=== PATIENT | female | born 1960 | race Caucasian/White ===

== ENCOUNTER 2024-12-10 14:49 | Inpatient (IN) | payer BC ==
[~2024-12-10] VITALS: Ht 162.6 cm; Wt 72.5 kg
[2024-12-10 15:27] LABS: BASOPHILS % (AUTO) 0.4 % (0-1); HEMOGLOBIN 14.9 g/dl (12.0-16.0); RED CELL DISTRIBUTION WIDTH 13.9 % (11.5-14.5)
[2024-12-10 15:29] LABS: EOSINOPHILS % (AUTO) 0.3 % (0-6); LYMPHOCYTES # (AUTO) 1.2 X10'3 (1.1-4.8); LYMPHOCYTES % (AUTO) 14.3 % (21-51); MEAN CORPUSCULAR HEMOGLOBIN 31.1 PG (27.0-31.0); MEAN CORPUSCULAR HGB CONC 33.1 g/dL (33.0-36.5); MEAN CORPUSCULAR VOLUME 94.1 FL (78-98); MEAN PLATELET VOLUME 10.8 FL (7.4-10.4); MONOCYTES # (AUTO) 0.7 X10'3 (0-0.9); MONOCYTES % (AUTO) 9.1 % (2-12); NEUTROPHILS # (AUTO) 6.3 X10'3 (1.8-7.7); NEUTROPHILS % (AUTO) 75.9 % (42-75); PLATELET COUNT 217 X10'3 (140-440); RED BLOOD COUNT 4.78 X10'6 (4.20-5.60); WHITE BLOOD COUNT 8.3 X10'3 (4.5-11.0)
[2024-12-10 15:50] LABS: ALANINE AMINOTRANSFERASE 125 U/L (12-78); ALBUMIN 3.5 G/DL (3.4-5.0); ALKALINE PHOSPHATASE 71 IU/L (46-116); ANION GAP 10 (8-16); ASPARTATE AMINO TRANSFERASE 69 U/L (10-37); BILIRUBIN,TOTAL 1.1 MG/DL (0.1-1.0); BLOOD UREA NITROGEN 23 MG/DL (7-18); CALCIUM 8.8 MG/DL (8.5-10.1); CHLORIDE 103 MMOL/L (99-107); CREATININE 1.28 MG/DL (0.40-0.90); GLUCOSE 136 MG/DL (70-104); POTASSIUM 4.3 MMOL/L (3.5-5.1); SODIUM 137 MMOL/L (135-145); TOTAL CARBON DIOXIDE 24.4 MMOL/L (24-32); TOTAL PROTEIN 6.9 G/DL (6.4-8.2); eCRCL 39 ML/MIN; eGFR 42 ML/MIN
[2024-12-10 15:58] LABS: PRO BRAIN NATRIURETIC PEPTIDE 6219 PG/ML (0-125)
[2024-12-10 16:05] LABS: PLATELET ESTIMATE NORMAL
[2024-12-10 16:06] LABS: LARGE PLATELETS FEW
[2024-12-10] MEDS ORDERED: bisacodyl 10mg suppository rectal RC PRN (17:35)
[2024-12-10] MEDS ORDERED: mag hydrox/Alum hydrox/simeth 30ml oral suspension PO PRN (17:35)
[2024-12-10] MEDS ORDERED: magnesium hydroxide 30ml (MOM) UD suspension PO PRN (17:35)
[2024-12-10] MEDS ORDERED: magnesium sulf-water 4G/100mL 100 ML IV PRN (17:35)
[2024-12-10] MEDS ORDERED: potassium Cl 40MEQ/1/2NS 520ml 520 ML IV PRN (17:35)
[2024-12-10] MEDS ORDERED: acetaminophen 325mg tablet PO PRN (17:35)
[2024-12-10] MEDS ORDERED: potassium Cl 20 mEq SR tablet PO PRN (17:35)
[2024-12-10] MEDS: furosemide 10 MG/1 ML 10ml inj IV SCH (17:35)
[2024-12-10] MEDS ORDERED: morphine 2 MG/ML inj. syringe IV PRN (17:35)
[2024-12-10] MEDS ORDERED: magnesium sulf-water 2g/50mL 50 ML IV PRN (17:35)
[2024-12-10] MEDS ORDERED: HYDROmorphone inj. 0.5 MG/0.5 ML DISP.SYRIN IV PRN (17:35)
[2024-12-10] MEDS ORDERED: magnesium Cl slow-release 64mg tablet PO PRN (17:35)
[2024-12-10] MEDS ORDERED: ondansetron/PF 4mg/2ml inj IV PRN (17:35)
[2024-12-10 18:17] LABS: APTT 27 SECONDS (22-32); INR 1.1 INR; PROTHROMBIN TIME 11.9 SECONDS (9.0-12.0)
[2024-12-10] MEDS: furosemide 10 MG/1 ML 10ml inj IV ONE (18:54)
[2024-12-10 19:03] LABS: BILIRUBIN,URINE NEGATIVE (Neg); CLARITY,URINE CLEAR (Clear); COLOR,URINE YELLOW (Yellow); GLUCOSE, URINE NEGATIVE (Neg); KETONES,URINE NEGATIVE (Neg); LEUKOCYTE ESTERASE ,URINE NEGATIVE (Neg); NITRITES, URINE NEGATIVE (Neg); OCCULT BLOOD,URINE NEGATIVE (Neg); PROTEIN,URINE NEGATIVE (Neg); UROBILINOGEN,URINE 0.2 E.U/dL (0.2-1.0)
[2024-12-10 19:18] LABS: UA COLLECTION TYPE NON-SPECIFIED
[2024-12-10] MEDS: DOBUTamine-DoBUTrex 500mg/D5W 250 ML IV SCH (19:33)
[2024-12-10] MEDS: docusate sod 100mg capsule PO SCH (19:51)
[2024-12-10] MEDS: heparin, porcine 5000 units/ml vial SQ SCH (19:52)
[2024-12-10] MEDS: K and/or MAG REPLACEMENT MC SCH (20:00)
[2024-12-10] MEDS ORDERED: FERR-116 PO (20:28)
[2024-12-10] MEDS ORDERED: ZOLP5TAB8 PO (20:28)
[2024-12-10] MEDS ORDERED: THYR60TA2 PO (20:28)
[2024-12-10] MEDS ORDERED: MAGN400C PO (20:28)
[2024-12-10] MEDS ORDERED: FURO-150 PO (20:28)
[2024-12-10] MEDS ORDERED: AMI200T PO (20:28)
[2024-12-10] MEDS ORDERED: TIRZ15PE3 (20:28)
[2024-12-10] MEDS ORDERED: POTA-206 PO (20:28)
[2024-12-10] MEDS ORDERED: HYDR-3686 PO (20:28)
[2024-12-10] MEDS ORDERED: FERR-121 PO (20:28)
[2024-12-10 22:30] VITALS: BP 96/63; PULSE 85; RESP 19; TEMP 97.8; O2SAT 97
[2024-12-10 23:30] VITALS: BP 98/48; PULSE 80; RESP 20
[2024-12-11] VITALS (12 sets, daily range): BP systolic 92–115; BP diastolic 49–67; PULSE 77–91; RESP 14–22; TEMP 97.5–98.3; O2SAT 96–98
[2024-12-11 06:44] LABS: BASOPHILS # (AUTO) 0.1 X10'3 (0-0.2); BASOPHILS % (AUTO) 0.7 % (0-1); EOSINOPHILS # (AUTO) 0.2 X10'3 (0-0.9); EOSINOPHILS % (AUTO) 2.2 % (0-6); MEAN PLATELET VOLUME 10.9 FL (7.4-10.4); MONOCYTES # (AUTO) 0.7 X10'3 (0-0.9); WHITE BLOOD COUNT 7.3 X10'3 (4.5-11.0)
[2024-12-11 06:48] LABS: LYMPHOCYTES # (AUTO) 1.9 X10'3 (1.1-4.8); LYMPHOCYTES % (AUTO) 25.2 % (21-51); MEAN CORPUSCULAR HEMOGLOBIN 31.4 PG (27.0-31.0); MEAN CORPUSCULAR HGB CONC 33.5 g/dL (33.0-36.5); MEAN CORPUSCULAR VOLUME 93.9 FL (78-98); NEUTROPHILS # (AUTO) 4.5 X10'3 (1.8-7.7); NEUTROPHILS % (AUTO) 61.9 % (42-75); PLATELET COUNT 171 X10'3 (140-440); RED BLOOD COUNT 4.15 X10'6 (4.20-5.60); RED CELL DISTRIBUTION WIDTH 13.6 % (11.5-14.5)
[2024-12-11 07:08] LABS: ALANINE AMINOTRANSFERASE 119 U/L (12-78); ALKALINE PHOSPHATASE 56 IU/L (46-116); ANION GAP 10 (8-16); ASPARTATE AMINO TRANSFERASE 70 U/L (10-37); BILIRUBIN,TOTAL 0.7 MG/DL (0.1-1.0); BLOOD UREA NITROGEN 19 MG/DL (7-18); BUN/CREATININE RATIO 16.8 (10.0-20.0); CHLORIDE 105 MMOL/L (99-107); CHOLESTEROL 149 MG/DL (0-200); CREATININE 1.13 MG/DL (0.40-0.90); GLUCOSE 89 MG/DL (70-104); HDL CHOLESTEROL 37 MG/DL (35-60); LDL CHOLESTEROL 91 MG/DL (50-100); MAGNESIUM 1.9 MG/DL (1.5-2.4); POTASSIUM 3.8 MMOL/L (3.5-5.1); SODIUM 141 MMOL/L (135-145); TOTAL CARBON DIOXIDE 26.3 MMOL/L (24-32); TOTAL PROTEIN 5.9 G/DL (6.4-8.2); TRIGLYCERIDES 106 MG/DL (20-135); eCRCL 44 ML/MIN; eGFR 49 ML/MIN
[2024-12-11] MEDS ORDERED: albuterol 2.5 MG/3 ML nebule NEB PRN (07:10)
[2024-12-11] MEDS: furosemide 20 MG/2 ML vial IV SCH (08:00)
[2024-12-11] MEDS ORDERED: lisinopril 5mg tablet PO SCH (08:00)
[2024-12-11] MEDS: spironolactone 25 MG tablet PO SCH (08:30)
[2024-12-11] MEDS: ferrous sulfate 325mg tablet PO SCH (08:48)
[2024-12-11] MEDS: hydrOXYzine 25 MG tablet PO SCH (08:49)
[2024-12-11] MEDS: EMPAGLIFLOZIN 10 MG TABLET PO SCH (08:49)
[2024-12-11] MEDS: ipratropium/albuterol 3ml nebule NEB SCH (11:00)
[2024-12-11] MEDS ORDERED: ipratropium/albuterol 3ml nebule NEB PRN (11:50)
[2024-12-11] MEDS: zolpidem 5mg tablet PO ONE (22:40)
[2024-12-11] MEDS: chlorhexidine gluc 4% **topical ** 120ml btl. TP ONE (23:00)
[2024-12-11] MEDS: CHLORHEXIDINE GLUCONATE 4% 15 ML topical sol TP ONE (23:45)
[2024-12-12] VITALS (12 sets, daily range): BP systolic 91–110; BP diastolic 49–66; PULSE 83–105; RESP 13–23; TEMP 97.1–97.9; O2SAT 93–98
[2024-12-12] MEDS ORDERED: LIDOcaine 1% (10mg/ml) 2ml vial ONE (07:40)
[2024-12-12] MEDS ORDERED: verapamil 2.5 mg/ml inj IV ONE (07:40)
[2024-12-12 07:41] LABS: EOSINOPHILS # (AUTO) 0.2 X10'3 (0-0.9); HEMOGLOBIN 13.3 g/dl (12.0-16.0); LYMPHOCYTES # (AUTO) 1.2 X10'3 (1.1-4.8); RED CELL DISTRIBUTION WIDTH 13.9 % (11.5-14.5)
[2024-12-12] MEDS ORDERED: iohexol 350MG/ML 100ml bottle IV ONE (07:41)
[2024-12-12] MEDS ORDERED: fentaNYL/PF 50MCG/1 ML 2ML syringe ONE ×2 (07:41→09:01)
[2024-12-12] MEDS ORDERED: iohexol 350 MG/ML 50ML vial IV ONE ×2 (07:41→09:28)
[2024-12-12] MEDS ORDERED: midazolam 1 mg/ML 2ml injection ONE ×5 (07:41→10:04)
[2024-12-12] MEDS ORDERED: heparin 1,000unit/ml 10ml vial 10 ML ONE (07:41)
[2024-12-12] MEDS ORDERED: nitroGLYCERIN 500mcg/5mL D5W 5 ML IV ONE (07:42)
[2024-12-12 07:44] LABS: BASOPHILS % (AUTO) 0.8 % (0-1); EOSINOPHILS % (AUTO) 3.1 % (0-6); HEMATOCRIT 39.6 % (35.0-45.0); LYMPHOCYTES % (AUTO) 19.6 % (21-51); MEAN CORPUSCULAR HEMOGLOBIN 31.5 PG (27.0-31.0); MEAN CORPUSCULAR HGB CONC 33.7 g/dL (33.0-36.5); MEAN CORPUSCULAR VOLUME 93.6 FL (78-98); MEAN PLATELET VOLUME 10.6 FL (7.4-10.4); MONOCYTES # (AUTO) 0.7 X10'3 (0-0.9); MONOCYTES % (AUTO) 12.2 % (2-12); NEUTROPHILS # (AUTO) 3.9 X10'3 (1.8-7.7); NEUTROPHILS % (AUTO) 64.3 % (42-75); PLATELET COUNT 167 X10'3 (140-440); RED BLOOD COUNT 4.23 X10'6 (4.20-5.60)
[2024-12-12 07:51] LABS: ALANINE AMINOTRANSFERASE 115 U/L (12-78); ALBUMIN 3.1 G/DL (3.4-5.0); ALBUMIN/GLOBULIN RATIO 0.9 (1.1-1.5); ALKALINE PHOSPHATASE 52 IU/L (46-116); ANION GAP 11 (8-16); ASPARTATE AMINO TRANSFERASE 49 U/L (10-37); BILIRUBIN,TOTAL 0.6 MG/DL (0.1-1.0); BLOOD UREA NITROGEN 21 MG/DL (7-18); BUN/CREATININE RATIO 18.1 (10.0-20.0); CHLORIDE 109 MMOL/L (99-107); CREATININE 1.16 MG/DL (0.40-0.90); GLUCOSE 93 MG/DL (70-104); MAGNESIUM 2.1 MG/DL (1.5-2.4); POTASSIUM 3.3 MMOL/L (3.5-5.1); SODIUM 142 MMOL/L (135-145); TOTAL CARBON DIOXIDE 21.9 MMOL/L (24-32); TOTAL PROTEIN 6.4 G/DL (6.4-8.2); eCRCL 43 ML/MIN; eGFR 47 ML/MIN
[2024-12-12] MEDS ORDERED: LIDOcaine 1% W/epiNEPHrine 1:100,000 20ml vial ONE (09:01)
[2024-12-12] MEDS ORDERED: vancomycin 1,000mg inj ONE ×2 (09:02→09:03)
[2024-12-12] MEDS ORDERED: ceFAZolin 1000mg inj ONE (09:03)
[2024-12-12] MEDS ORDERED: HYDROmorphone 1 mg/ml syringe ONE ×2 (09:26→10:08)
[2024-12-12] MEDS ORDERED: protamine sulfate 10mg/ml inj. ONE (09:34)
[2024-12-12] MEDS ORDERED: HYDROcodone/acetaminophen 5mg/325mg tablet PO PRN ×2 (11:05→11:10)
[2024-12-12] MEDS ORDERED: HYDROcodone/acetaminophen 10/325mg tab PO PRN ×2 (11:05→11:10)
[2024-12-12] MEDS ORDERED: ondansetron/PF 4mg/2ml inj IV PRN (11:05)
[2024-12-12] MEDS ORDERED: proCHLORperazine 10 MG/2 ml inj IV PRN (11:10)
[2024-12-12] MEDS: normal saline 1000ml 1,000 ML IV ONE (11:32)
[2024-12-12] MEDS: vancomycin/NS 1 GM ADD-VANTAGE 250 ML IV ONE (11:43)
[2024-12-12] MEDS: potassium Cl 20 mEq SR tablet PO PRN (11:51)
[2024-12-12] MEDS ORDERED: potassium Cl 20 mEq SR tablet PO STA (16:53)
[2024-12-12] MEDS: HYDROcodone/acetaminophen 5mg/325mg tablet PO PRN (21:24)
[2024-12-12] MEDS: ACETYLCYSTEINE 200 MG/1 ML 4 ML ORAL SOLUTION PO SCH (21:25)
[2024-12-13] VITALS (7 sets, daily range): BP systolic 100–119; BP diastolic 55–75; PULSE 86–105; RESP 14–19; O2SAT 93–96
[2024-12-13 06:05] LABS: EOSINOPHILS # (AUTO) 0.3 X10'3 (0-0.9); HEMOGLOBIN 12.3 g/dl (12.0-16.0); LYMPHOCYTES # (AUTO) 1.1 X10'3 (1.1-4.8); NEUTROPHILS # (AUTO) 3.6 X10'3 (1.8-7.7); WHITE BLOOD COUNT 5.8 X10'3 (4.5-11.0)
[2024-12-13 06:10] LABS: BASOPHILS % (AUTO) 0.6 % (0-1); LYMPHOCYTES % (AUTO) 19.6 % (21-51); MEAN CORPUSCULAR HGB CONC 34.2 g/dL (33.0-36.5); MEAN CORPUSCULAR VOLUME 93.5 FL (78-98); MEAN PLATELET VOLUME 10.7 FL (7.4-10.4); MONOCYTES # (AUTO) 0.7 X10'3 (0-0.9); NEUTROPHILS % (AUTO) 61.8 % (42-75); PLATELET COUNT 140 X10'3 (140-440); RED BLOOD COUNT 3.85 X10'6 (4.20-5.60)
[2024-12-13 06:37] LABS: ALANINE AMINOTRANSFERASE 80 U/L (12-78); ALBUMIN 2.9 G/DL (3.4-5.0); ALKALINE PHOSPHATASE 46 IU/L (46-116); ANION GAP 9 (8-16); ASPARTATE AMINO TRANSFERASE 21 U/L (10-37); BILIRUBIN,TOTAL 0.6 MG/DL (0.1-1.0); BLOOD UREA NITROGEN 16 MG/DL (7-18); BUN/CREATININE RATIO 15.1 (10.0-20.0); CALCIUM 8.1 MG/DL (8.5-10.1); CHLORIDE 110 MMOL/L (99-107); CREATININE 1.06 MG/DL (0.40-0.90); GLUCOSE 88 MG/DL (70-104); POTASSIUM 3.7 MMOL/L (3.5-5.1); SODIUM 143 MMOL/L (135-145); TOTAL PROTEIN 5.8 G/DL (6.4-8.2); eCRCL 47 ML/MIN; eGFR 52 ML/MIN
[2024-12-13] MEDS: amiodarone 200mg tablet PO SCH (10:33)
[2024-12-13] MEDS ORDERED: EMPA10TA PO (15:04)
[2024-12-13] MEDS ORDERED: SPIR25TA5 PO (15:07)
== END 2024-12-13 17:31 | disposition home or self-care (01) | DRG 275 ==
LOC: ER 14:50 → ED HOLD 17:44 → PCU 3S 22:20
PROVIDERS: ADMIT Internal Medicine; ATTEND Internal Medicine
PROC: 4A023N7 Measurement of Cardiac Sampling and Pressure, Left Heart, Percutaneous Approach (ICD-10-PCS; principal; 2024-12-12)
PROC: 0JH608Z Insertion of Defibrillator Generator into Chest Subcutaneous Tissue and Fascia, Open Approach (ICD-10-PCS; 2024-12-12)
PROC: 02H63KZ Insertion of Defibrillator Lead into Right Atrium, Percutaneous Approach (ICD-10-PCS; 2024-12-12)
PROC: B2111ZZ Fluoroscopy of Multiple Coronary Arteries using Low Osmolar Contrast (ICD-10-PCS; 2024-12-12)
PROC: 02HK3KZ Insertion of Defibrillator Lead into Right Ventricle, Percutaneous Approach (ICD-10-PCS; 2024-12-12)
DX: I25.10 Atherosclerotic heart disease of native coronary artery without angina pectoris (principal); I50.23 Acute on chronic systolic (congestive) heart failure; N17.0 Acute kidney failure with tubular necrosis; G43.809 Other migraine, not intractable, without status migrainosus; I95.9 Hypotension, unspecified; J44.9 Chronic obstructive pulmonary disease, unspecified; D48.19 Other specified neoplasm of uncertain behavior of connective and other soft tissue; K76.89 Other specified diseases of liver; R94.31 Abnormal electrocardiogram [ECG] [EKG]; Z90.710 Acquired absence of both cervix and uterus
CPT/HCPCS: 33249; 36415; 70450; 71045; 71250; 76604; 80053; 80061; 81003; 83036; 83735; 83880; 84145; 84484; 85008; 85025; 85610; 85730; 87081; 93005; 93306; 93454; 93641; 94760; 96365; 96372; 96375; 97116; 97161; 97530; 99152; 99153; 99285; A4333; A4565; A6258; C1721; C1894; C1895; G0378; J0690; J1171; J1250; J1644; J1940; J2003; J2250; J2720; J3010; J3370; J3490; J7030; J7040; Q0177; Q9967

== ENCOUNTER 2024-12-16 22:54 | Emergency (ER) | payer BC ==
[~2024-12-16] VITALS: Ht 162.6 cm; Wt 69.1 kg
[~2024-12-16 22:54] MED LIST: AMI200T PO; EMPA10TA PO; FERR-116 PO; FURO-150 PO; HYDR-3686 PO; MAGN400C PO; POTA-206 PO; SPIR25TA5 PO; TIRZ15PE3; ZOLP5TAB8 PO
[2024-12-16 23:36] LABS: BASOPHILS % (AUTO) 0.4 % (0-1); EOSINOPHILS % (AUTO) 0.1 % (0-6); HEMATOCRIT 42.1 % (35.0-45.0); HEMOGLOBIN 14.1 g/dl (12.0-16.0); LYMPHOCYTES # (AUTO) 1.1 X10'3 (1.1-4.8); LYMPHOCYTES % (AUTO) 9.5 % (21-51); MEAN CORPUSCULAR HEMOGLOBIN 31.5 PG (27.0-31.0); MEAN CORPUSCULAR HGB CONC 33.4 g/dL (33.0-36.5); MEAN CORPUSCULAR VOLUME 94.2 FL (78-98); MEAN PLATELET VOLUME 10.4 FL (7.4-10.4); MONOCYTES # (AUTO) 1.4 X10'3 (0-0.9); NEUTROPHILS # (AUTO) 9.2 X10'3 (1.8-7.7); PLATELET COUNT 189 X10'3 (140-440); RED BLOOD COUNT 4.47 X10'6 (4.20-5.60); RED CELL DISTRIBUTION WIDTH 14.1 % (11.5-14.5); WHITE BLOOD COUNT 11.7 X10'3 (4.5-11.0)
[2024-12-16 23:48] LABS: ALANINE AMINOTRANSFERASE 213 U/L (12-78); ALBUMIN 3.2 G/DL (3.4-5.0); ALKALINE PHOSPHATASE 114 IU/L (46-116); ANION GAP 13 (8-16); ASPARTATE AMINO TRANSFERASE 132 U/L (10-37); BILIRUBIN,TOTAL 0.8 MG/DL (0.1-1.0); BLOOD UREA NITROGEN 39 MG/DL (7-18); BUN/CREATININE RATIO 23.5 (10.0-20.0); CALCIUM 8.4 MG/DL (8.5-10.1); CHLORIDE 101 MMOL/L (99-107); CREATININE 1.66 MG/DL (0.40-0.90); GLUCOSE 148 MG/DL (70-104); SODIUM 135 MMOL/L (135-145); TOTAL CARBON DIOXIDE 21.1 MMOL/L (24-32); TOTAL PROTEIN 6.5 G/DL (6.4-8.2); eCRCL 30 ML/MIN; eGFR 31 ML/MIN
[2024-12-16 23:57] LABS: PRO BRAIN NATRIURETIC PEPTIDE 8102 PG/ML (0-125)
[2024-12-17 01:57] LABS: D-DIMER 4.31 MG/L FEU (0-0.50)
[2024-12-17] MEDS ORDERED: iohexol 350MG/ML 100ml bottle IV ONE (02:36)
[2024-12-17] MEDS: normal saline 1000ML IV soln IVB ONE (02:54)
[2024-12-17] MEDS: midazolam 1 mg/ML 2ml injection IV ONE (03:52)
[2024-12-17 05:37] VITALS: BP 112/75; PULSE 66; RESP 17; TEMP 98; O2SAT 100
== END 2024-12-17 05:45 | disposition home or self-care (01) ==
LOC: ER 22:54
DX: I50.9 Heart failure, unspecified (principal); Z95.810 Presence of automatic (implantable) cardiac defibrillator
CPT/HCPCS: 36415; 71045; 71275; 80053; 83880; 84145; 84484; 85025; 85379; 93005; 96361; 96374; 99285; J2250; J7030; Q9967

== ENCOUNTER 2024-12-19 11:39 | Inpatient (IN) | payer BC ==
[2024-12-19] VITALS (13 sets, daily range): BP systolic 88–114; BP diastolic 38–70; PULSE 75–85; RESP 13–22; O2SAT 90–98
[~2024-12-19] VITALS: Ht 162.6 cm; Wt 71.2 kg
[2024-12-19] MEDS: normal saline 1000ml 1,000 ML IV SCH (15:45)
[2024-12-19] MEDS: ketorolac trometh 15mg/ml vial 15 MG/ML ML IV ONE (16:47)
[2024-12-19] MEDS: milrinone (Primacor) 20mg/D5W 100 ML IV SCH (17:56)
[2024-12-20] VITALS (25 sets, daily range): BP systolic 85–109; BP diastolic 33–62; PULSE 74–94; RESP 11–27; O2SAT 91–98
[2024-12-20 02:36] LABS: BASOPHILS % (AUTO) 0.3 % (0-1); EOSINOPHILS # (AUTO) 0.2 X10'3 (0-0.9); EOSINOPHILS % (AUTO) 1.7 % (0-6); HEMOGLOBIN 12.1 g/dl (12.0-16.0); LYMPHOCYTES # (AUTO) 1.1 X10'3 (1.1-4.8); LYMPHOCYTES % (AUTO) 12.5 % (21-51); MEAN CORPUSCULAR HEMOGLOBIN 31.2 PG (27.0-31.0); MEAN CORPUSCULAR HGB CONC 32.7 g/dL (33.0-36.5); MEAN CORPUSCULAR VOLUME 95.2 FL (78-98); MEAN PLATELET VOLUME 10.4 FL (7.4-10.4); MONOCYTES # (AUTO) 0.9 X10'3 (0-0.9); MONOCYTES % (AUTO) 10.5 % (2-12); NEUTROPHILS # (AUTO) 6.8 X10'3 (1.8-7.7); PLATELET COUNT 124 X10'3 (140-440); RED BLOOD COUNT 3.88 X10'6 (4.20-5.60); RED CELL DISTRIBUTION WIDTH 14.1 % (11.5-14.5); WHITE BLOOD COUNT 9.1 X10'3 (4.5-11.0)
[2024-12-20 03:16] LABS: ALANINE AMINOTRANSFERASE 240 U/L (12-78); ALBUMIN 2.4 G/DL (3.4-5.0); ALKALINE PHOSPHATASE 134 IU/L (46-116); ANION GAP 8 (8-16); ASPARTATE AMINO TRANSFERASE 91 U/L (10-37); BILIRUBIN,TOTAL 0.7 MG/DL (0.1-1.0); BLOOD UREA NITROGEN 36 MG/DL (7-18); BUN/CREATININE RATIO 26.7 (10.0-20.0); CALCIUM 7.8 MG/DL (8.5-10.1); CHLORIDE 105 MMOL/L (99-107); CREATININE 1.35 MG/DL (0.40-0.90); GLUCOSE 95 MG/DL (70-104); MAGNESIUM 2.1 MG/DL (1.5-2.4); PHOSPHORUS 4.3 MG/DL (2.3-4.5); POTASSIUM 3.8 MMOL/L (3.5-5.1); SODIUM 137 MMOL/L (135-145); TOTAL CARBON DIOXIDE 24.4 MMOL/L (24-32); TOTAL PROTEIN 4.9 G/DL (6.4-8.2); eCRCL 38 ML/MIN; eGFR 40 ML/MIN
[2024-12-20] MEDS: midodrine 5mg tablet PO SCH (08:20)
[2024-12-20] MEDS: amiodarone 200mg tablet PO SCH (11:22)
[2024-12-20] MEDS: furosemide 20MG tablet PO SCH (11:23)
[2024-12-20] MEDS: potassium chloride 10mEq ER tablet PO SCH (11:23)
[2024-12-21] VITALS (24 sets, daily range): BP systolic 90–121; BP diastolic 32–91; PULSE 87–103; RESP 14–26; O2SAT 90–98
[2024-12-21 03:31] LABS: BASOPHILS % (AUTO) 0.1 % (0-1); EOSINOPHILS # (AUTO) 0.3 X10'3 (0-0.9); EOSINOPHILS % (AUTO) 3.9 % (0-6); HEMATOCRIT 37.6 % (35.0-45.0); HEMOGLOBIN 12.2 g/dl (12.0-16.0); LYMPHOCYTES # (AUTO) 0.8 X10'3 (1.1-4.8); LYMPHOCYTES % (AUTO) 10.3 % (21-51); MEAN CORPUSCULAR HEMOGLOBIN 31.1 PG (27.0-31.0); MEAN CORPUSCULAR HGB CONC 32.3 g/dL (33.0-36.5); MEAN CORPUSCULAR VOLUME 96.2 FL (78-98); MEAN PLATELET VOLUME 10.4 FL (7.4-10.4); MONOCYTES # (AUTO) 0.9 X10'3 (0-0.9); NEUTROPHILS # (AUTO) 6.1 X10'3 (1.8-7.7); NEUTROPHILS % (AUTO) 74.7 % (42-75); PLATELET COUNT 135 X10'3 (140-440); RED BLOOD COUNT 3.91 X10'6 (4.20-5.60); RED CELL DISTRIBUTION WIDTH 14.4 % (11.5-14.5); WHITE BLOOD COUNT 8.2 X10'3 (4.5-11.0)
[2024-12-21 03:35] LABS: ALANINE AMINOTRANSFERASE 190 U/L (12-78); ALBUMIN 2.4 G/DL (3.4-5.0); ALBUMIN/GLOBULIN RATIO 0.9 (1.1-1.5); ALKALINE PHOSPHATASE 108 IU/L (46-116); ANION GAP 10 (8-16); ASPARTATE AMINO TRANSFERASE 57 U/L (10-37); BILIRUBIN,TOTAL 0.8 MG/DL (0.1-1.0); BLOOD UREA NITROGEN 20 MG/DL (7-18); BUN/CREATININE RATIO 21.1 (10.0-20.0); CALCIUM 7.6 MG/DL (8.5-10.1); CHLORIDE 108 MMOL/L (99-107); CREATININE 0.95 MG/DL (0.40-0.90); GLUCOSE 100 MG/DL (70-104); MAGNESIUM 2.1 MG/DL (1.5-2.4); PHOSPHORUS 3.7 MG/DL (2.3-4.5); POTASSIUM 3.9 MMOL/L (3.5-5.1); SODIUM 140 MMOL/L (135-145); TOTAL CARBON DIOXIDE 22.4 MMOL/L (24-32); TOTAL PROTEIN 5.2 G/DL (6.4-8.2); eCRCL 53 ML/MIN; eGFR 59 ML/MIN
[2024-12-21] MEDS ORDERED: THYR15TA PO (16:49)
[2024-12-21] MEDS ORDERED: SPIR25TA5 PO (16:50)
[2024-12-21] MEDS: zolpidem 5mg tablet PO PRN (22:33)
[2024-12-22] VITALS (24 sets, daily range): BP systolic 93–127; BP diastolic 38–85; PULSE 89–106; RESP 12–21; O2SAT 92–98
[2024-12-22 03:30] LABS: BASOPHILS % (AUTO) 0.4 % (0-1); EOSINOPHILS # (AUTO) 0.4 X10'3 (0-0.9); EOSINOPHILS % (AUTO) 5.4 % (0-6); HEMATOCRIT 37.9 % (35.0-45.0); HEMOGLOBIN 12.1 g/dl (12.0-16.0); LYMPHOCYTES % (AUTO) 12.6 % (21-51); MEAN CORPUSCULAR HEMOGLOBIN 30.5 PG (27.0-31.0); MEAN CORPUSCULAR HGB CONC 31.9 g/dL (33.0-36.5); MEAN CORPUSCULAR VOLUME 95.7 FL (78-98); MEAN PLATELET VOLUME 10.3 FL (7.4-10.4); MONOCYTES # (AUTO) 0.9 X10'3 (0-0.9); MONOCYTES % (AUTO) 11.3 % (2-12); NEUTROPHILS # (AUTO) 5.4 X10'3 (1.8-7.7); NEUTROPHILS % (AUTO) 70.3 % (42-75); PLATELET COUNT 156 X10'3 (140-440); RED BLOOD COUNT 3.96 X10'6 (4.20-5.60); WHITE BLOOD COUNT 7.6 X10'3 (4.5-11.0)
[2024-12-22 03:49] LABS: ALANINE AMINOTRANSFERASE 145 U/L (12-78); ALBUMIN 2.3 G/DL (3.4-5.0); ALBUMIN/GLOBULIN RATIO 0.8 (1.1-1.5); ALKALINE PHOSPHATASE 88 IU/L (46-116); ANION GAP 6 (8-16); ASPARTATE AMINO TRANSFERASE 39 U/L (10-37); BILIRUBIN,TOTAL 0.6 MG/DL (0.1-1.0); BLOOD UREA NITROGEN 14 MG/DL (7-18); BUN/CREATININE RATIO 16.5 (10.0-20.0); CALCIUM 7.6 MG/DL (8.5-10.1); CHLORIDE 108 MMOL/L (99-107); CREATININE 0.85 MG/DL (0.40-0.90); GLUCOSE 100 MG/DL (70-104); MAGNESIUM 1.9 MG/DL (1.5-2.4); PHOSPHORUS 3.3 MG/DL (2.3-4.5); POTASSIUM 4.1 MMOL/L (3.5-5.1); SODIUM 141 MMOL/L (135-145); TOTAL CARBON DIOXIDE 26.6 MMOL/L (24-32); TOTAL PROTEIN 5.2 G/DL (6.4-8.2); eCRCL 59 ML/MIN; eGFR 68 ML/MIN
[2024-12-23] VITALS (14 sets, daily range): BP systolic 95–124; BP diastolic 48–78; PULSE 94–103; RESP 11–22; O2SAT 94–97
[2024-12-23 08:49] LABS: ALANINE AMINOTRANSFERASE 108 U/L (12-78); ALBUMIN 2.3 G/DL (3.4-5.0); ALBUMIN/GLOBULIN RATIO 0.7 (1.1-1.5); ALKALINE PHOSPHATASE 74 IU/L (46-116); ANION GAP 8 (8-16); ASPARTATE AMINO TRANSFERASE 27 U/L (10-37); BILIRUBIN,TOTAL 0.5 MG/DL (0.1-1.0); BLOOD UREA NITROGEN 10 MG/DL (7-18); BUN/CREATININE RATIO 11.5 (10.0-20.0); CALCIUM 8.1 MG/DL (8.5-10.1); CHLORIDE 109 MMOL/L (99-107); CREATININE 0.87 MG/DL (0.40-0.90); GLUCOSE 106 MG/DL (70-104); MAGNESIUM 1.9 MG/DL (1.5-2.4); PHOSPHORUS 3.6 MG/DL (2.3-4.5); SODIUM 140 MMOL/L (135-145); TOTAL CARBON DIOXIDE 23.3 MMOL/L (24-32); TOTAL PROTEIN 5.5 G/DL (6.4-8.2); eCRCL 57 ML/MIN; eGFR 66 ML/MIN
== END 2024-12-23 16:32 | disposition home health service (06) | DRG 316 ==
LOC: PCU 3S 11:39 → CICU 2S 17:46
PROVIDERS: ADMIT Internal Medicine Cardiovascular Disease; ATTEND Internal Medicine Cardiovascular Disease
PROC: 02HV33Z Insertion of Infusion Device into Superior Vena Cava, Percutaneous Approach (ICD-10-PCS; principal; 2024-12-19)
DX: I95.9 Hypotension, unspecified (principal); Z95.810 Presence of automatic (implantable) cardiac defibrillator
CPT/HCPCS: 36415; 36569; 71045; 76942; 80053; 83735; 84100; 85025; 87081; 93005; A4615; A6213; C1751; G0378; J1885; J2260; J7030; J7060